=== PATIENT | female | born 1960 | race Caucasian/White ===

== ENCOUNTER 2021-07-28 18:40 | Emergency (ER) | payer OTHER, MEDICAID ==
[~2021-07-28] VITALS: Ht 165.1 cm; Wt 65.0 kg
[2021-07-28] MEDS ORDERED: SODIUM CHLORIDE 0.9% 1,000 ML IV ONE (19:15)
[2021-07-28] MEDS ORDERED: KETOROLAC 15MG/ML VIAL IV ONE (19:30)
[2021-07-28] MEDS ORDERED: ONDANSETRON HCL 4MG/2ML INJ IV ONE (19:30)
[2021-07-28 20:24] LABS: HEMATOCRIT. 42.4 % (36.0-48.0); HEMOGLOBIN. 13.4 g/dL (12.0-16.0); MEAN CORPUSCULAR HEMOGLOBIN 28.6 pg (28.0-32.0); MEAN CORPUSCULAR VOLUME 90.4 fL (81.0-99.0); MEAN PLATELET VOLUME 9.1 fl (7.4-10.4); PLATELET 201 x1000/uL (130-400); RED BLOOD CELL COUNT 4.69 mill/uL (4.2-5.4); RED CELL DISTRIBUTION WIDTH 15.8 % (11.6-14.6)
[2021-07-28 20:27] LABS: INR 0.9; PROTHROMBIN TIME 10.2 sec (9.6-11.0)
[2021-07-28 20:36] LABS: CHLORIDE 103 mEq/L (98-107)
[2021-07-28 21:02] LABS: PLATELET ESTIMATE NORMAL
[2021-07-28] MEDS ORDERED: SODIUM CHLORIDE 0.9% 1000ML BAG (SEPSIS BOLUS) IV ONE (21:45)
[2021-07-28] MEDS ORDERED: METRONIDAZOLE 500 MG PREMIX 100 ML IV ONE (21:45)
[2021-07-28] MEDS ORDERED: PIPERACILLIN/TAZOBACTAM 3.375GM/50ML PREMIX IV ONE (22:00)
[2021-07-28] MEDS ORDERED: PIPERACILLIN/TAZ 3.375G PREMIX 50 ML IV NR (22:15)
[2021-07-28] MEDS ORDERED: IOHEXOL-300 100 ML BOTTLE ONE (23:11)
[2021-07-29 02:25] VITALS: BP 122/65
== END 2021-07-29 03:01 | disposition short-term general hospital (02) ==
LOC: ER 18:40
DX: R10.9 Unspecified abdominal pain (principal); D72.829 Elevated white blood cell count, unspecified; E87.2 Acidosis; J45.909 Unspecified asthma, uncomplicated; E11.9 Type 2 diabetes mellitus without complications; I10 Essential (primary) hypertension; Z88.0 Allergy status to penicillin
CPT/HCPCS: 36415; 71045; 74177; 80053; 83605; 83690; 84484; 85025; 85610; 87040; 93005; 96361; 96365; 96366; 96368; 96375; 99285; J1885; J2405; J2543; J3490; J7030; Q9967; 96367